=== PATIENT | male | born 1995 | race Asian ===

== ENCOUNTER → 2016-10-13 | Outpatient (CLI) | payer OTHER ==
[2016-10-13 12:53] LABS: HEPATITIS B AB NEG
[2016-10-21 15:44] LABS: LSP % CELLS ANALYZED CD4 19 % (30-61); LSP ABSOLUTE CT CD4 291 cells/uL (490-1740); LSP LYMPHOCYTES ABSOLUTE 1495 cells/uL (850-3900)
== END ==
LOC: C.LAB1850 09:48
PROVIDERS: ATTEND Internal Medicine Infectious Disease
DX: B20 Human immunodeficiency virus [HIV] disease (principal)

== ENCOUNTER → 2016-12-13 | Outpatient (CLI) | payer OTHER ==
[2016-12-13 12:17] LABS: BASO % 0.6 %; BASO ABS # 0.04 K/uL (0-0.2); COMPLETE YES; EOS % 9.3 %; IG% 0.1 %; LYMPH % 35.2 %; LYMPH ABS # 2.39 K/uL (1.2-3.4); MEAN CELL VOLUME 86.1 fL (80-100); MEAN CORPUSCULAR HEMOGLOBIN 29.4 pg (25-34); MEAN CORPUSCULAR HGB CONC 34.1 g/dl (32-36); MEAN PLATELET VOLUME 9.4 fL (7.4-10.4); MONO % 8.7 %; NEUT % 46.1 %; PLATELET COUNT 350 K/uL (130-400); RED BLOOD COUNT 4.76 M/uL (4.7-6.1); WHITE BLOOD COUNT 6.79 K/uL (4.8-10.8)
[2016-12-13 12:23] LABS: ALT/SGPT 111 U/L (12-78); AST/SGOT 407 U/L (15-37); BLOOD UREA NITROGEN 16 mg/dl (7-18); BUN/CREATININE RATIO 14.6 (10-20); CALCIUM 9.7 mg/dl (8.5-10.1); CARBON DIOXIDE 31 mmol/L (21-32); CHLORIDE 105 mmol/L (98-107); CHOLESTEROL 147 mg/dl (0-200); CREATININE 1.08 mg/dl (0.60-1.40); GLUCOSE 102 mg/dl (70-99); POTASSIUM 4.1 mmol/L (3.5-5.1); SODIUM 140 mmol/L (136-145)
[2016-12-13 12:25] LABS: ALB/GLOB RATIO 1.1 (0.9-2); ALKALINE PHOSPHATASE 63 U/L (45-117); CHOLESTEROL/HDL RATIO 3.5; HDL CHOLESTEROL 42 mg/dl; LDL CHOLESTEROL CALCULATED 70 mg/dl; TRIGLYCERIDES 175 mg/dl (0-150); VERY LOW DENSITY LIPOPROT CALC 35 mg/dl
[2016-12-15 13:28] LABS: LSP % CELLS ANALYZED CD4 20 % (30-61); LSP ABSOLUTE CT CD4 474 cells/uL (490-1740); LSP LYMPHOCYTES ABSOLUTE 2360 cells/uL (850-3900)
== END | disposition home or self-care (01) ==
LOC: C.LAB1850 10:21
PROVIDERS: ATTEND Internal Medicine Infectious Disease
DX: B20 Human immunodeficiency virus [HIV] disease (principal)

== ENCOUNTER → 2017-03-21 | Outpatient (CLI) | payer OTHER ==
[2017-03-21 12:27] LABS: BASO % 0.5 %; BASO ABS # 0.03 K/uL (0-0.2); EOS % 4.9 %; EOS ABS # 0.31 K/uL (0-0.5); HEMOGLOBIN 14.4 g/dL (14.0-18.0); IG# 0.02 K/uL (0.00-0.02); LYMPH % 35.3 %; LYMPH ABS # 2.25 K/uL (1.2-3.4); MEAN CELL VOLUME 88.2 fL (80-100); MEAN CORPUSCULAR HEMOGLOBIN 30.3 pg (25-34); MEAN CORPUSCULAR HGB CONC 34.3 g/dl (32-36); MEAN PLATELET VOLUME 9.2 fL (7.4-10.4); MONO % 8.2 %; MONO ABS # 0.52 K/uL (0.11-0.59); NEUT % 50.8 %; NEUT ABS # 3.25 K/uL (1.4-6.5); PLATELET COUNT 404 K/uL (130-400); RED CELL DISTRIBUTION WIDTH CV 12.7 % (11.5-14.5); WHITE BLOOD COUNT 6.38 K/uL (4.8-10.8)
[2017-03-21 12:34] LABS: ALT/SGPT 37 U/L (12-78); BLOOD UREA NITROGEN 17 mg/dl (7-18); CALCIUM 8.8 mg/dl (8.5-10.1); CARBON DIOXIDE 27 mmol/L (21-32); CHOLESTEROL 154 mg/dl (0-200); CREATININE 1.18 mg/dl (0.60-1.40); GLUCOSE 112 mg/dl (70-99); POTASSIUM 3.7 mmol/L (3.5-5.1); SODIUM 140 mmol/L (136-145)
[2017-03-21 12:37] LABS: ALKALINE PHOSPHATASE 65 U/L (45-117); AST/SGOT 22 U/L (15-37); LDL CHOLESTEROL CALCULATED 87 mg/dl; TOTAL PROTEIN 7.9 gm/dl (6.4-8.2)
== END | disposition home or self-care (01) ==
LOC: C.LAB1850 10:04
PROVIDERS: ATTEND Internal Medicine Infectious Disease
DX: B20 Human immunodeficiency virus [HIV] disease (principal)

== ENCOUNTER 2018-11-08 15:46 | Inpatient (IN) ==
[2018-11-08 16:19] LABS: Appearance Urine Clear (Clear); Bilirubin Urine Negative (Negative); Blood Urine Negative (Negative); Color Urine Orange; Glucose Urine UA Negative (Negative); Ketones Urine Negative (Negative); Leukocyte Esterase Urine Negative (Negative); Nitrite Urine Negative (Negative); Protein Urine Negative (Negative); Specific Gravity Urine 1.016 (1.000-1.030); Urobilinogen Urine Negative (Negative); pH Urine 8.5 (4.5-7.5)
[2018-11-08 16:36] LABS: Amphetamines+Metham, Urine Neg (Neg); Barbiturates, Urine Neg (Neg); Benzodiazepine, Urine Neg (Neg); Cocaine, Urine Neg (Neg); MDMA (Ecstacy), Urine Neg (Neg); Methadone, Urine Neg (Neg); Opiate, Urine Neg (Neg); Phencyclidine, Urine Neg (Neg)
[2018-11-08 17:04] LABS: Basophils # (auto) 0.04 K/uL (0-0.2); Basophils % (auto) 0.6 %; Eosinophils # (auto) 0.19 K/uL (0-0.5); Eosinophils % (auto) 2.7 %; Hematocrit (blood only) 41.1 % (42-52); Hemoglobin 14.3 g/dL (14.0-18.0); Immature Granulocytes # (auto) 0.01 K/uL (0.00-0.02); Immature Granulocytes % (auto) 0.1 %; Lymphocytes # (auto) 1.37 K/uL (1.2-3.4); Lymphocytes % (auto) 19.4 %; Mean Corpuscular Hemoglobin 30.1 pg (25-34); Mean Corpuscular Hgb Conc 34.8 g/dL (32-36); Mean Corpuscular Volume 86.5 fL (80-100); Mean Platelet Volume 9.4 fL (7.4-10.4); Monocytes # (auto) 0.35 K/uL (0.11-0.59); Neutrophils # (auto) 5.11 K/uL (1.4-6.5); Neutrophils % (auto) 72.2 %; Platelet Count 331 K/uL (130-400); RDW Coefficient of Variation 12.8 % (11.5-14.5); RDW Standard Deviation 40.9 fL (36.4-46.3); Red Blood Count 4.75 M/uL (4.7-6.1); White Blood Count 7.07 K/uL (4.8-10.8)
[2018-11-08 17:20] LABS: Albumin Level 4.2 gm/dl (3.4-5.0); Calcium 9.1 mg/dl (8.5-10.1); Est GFR (African American) 138.1; Est GFR (Non-African American) 119.1; Potassium 3.7 mmol/L (3.5-5.1)
[2018-11-08 17:30] LABS: Albumin Globulin Ratio 1.1 (0.9-2); Bilirubin,Total 0.7 mg/dl (0.2-1); Globulin 3.7 gm/dl (2.5-4.0); Thyroid Stimulating Hormone 0.997 uIu/ml (0.300-4.500); Total Protein 7.9 gm/dl (6.4-8.2)
[2018-11-08 17:40] LABS: Acetaminophen < 2 ug/ml (10-30); Salicylate < 1.7 mg/dl (2.8-20)
--- NOTE | 2018-11-08 18:02 | Emergency Department Note ---
Entered by Alicia Cotter acting as a scribe for Shadi Root MD History of Present Illness General Chief complaint: Mental Health Evaluation Stated complaint: MENTAL HEALTH EVALUATION Time Seen by Provider: 11/08/18 15:56 Source: patient History of Present Illness Onset (ago): year(s) 1 Location: head Pain Consistency: + other (worsening) Quality: + other (mental health evaluation) Relieved By: not by medication Associated symptoms: + denies other symptoms (abdominal pain, leg swelling, abnormal sleeping), + loss of appetite and + other (SI with plan to hang himself) The patient is a 22 year old [place] male w/ PMHx depression and HIV who presents to the ED for a mental health evaluation. The patient states that over the past year he has had increased depression. He states that last semester he did not meet his expectations or his professors expectations in school and did not do well last semester. He reports that he went home to [facility] for the summer and was placed on medications for his depression there. He states that he only took them for a few days and then stopped taking them. He reports that he thought he would have a clean slate for the semester, but he again missed a deadline for a project and it has made his depression worse. The patient sates that she has been having thoughts of harming himself by hanging himself with a rope. The patient complains of loss of appetite. He notes that he had been sleeping too much when he came back to school, but isnt anymore. He notes that he does have access to kitchen knives. The patient denies abdominal pain, leg swelling, ever trying to hurt himself in the past, and access to guns Home Medications Home Medications Medication Instructions Recorded Confirmed Type Tivicay 0 mg PO DAILY 11/08/18 11/08/18 History emtricitabine-tenofovir alafen 1 tab PO DAILY 11/08/18 11/08/18 History [Descovy] Allergies Allergy/AdvReac Type Severity Reaction Status Date / Time No Known Allergies Allergy Verified 11/08/18 17:56 Past Med/Surg History Medical History Depression HIV (human immunodeficiency virus infection) Family History Other No significant family history Social History Preferred Language: Hebrew Communication Ability: Effective 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 and A total of 10 systems reviewed and were otherwise negative Physical Exam Vital Signs Vital Signs - 24 hr 11/08/18 15:52 11/08/18 17:52 11/08/18 19:01 Temperature 37.0 C Temperature Source Oral Sepsis Recent Fever Within 48 Hours No Sepsis New/Unexplained Change in Mental Status No Sepsis Action Taken by Nursing No Action Required Pulse Rate 73 Pulse Rate [Finger] 75 73 Pulse Rhythm Regular Pulse Rhythm [Finger] Regular Pulse Strength Normal Respiratory Rate 20 16 20 Respiratory Effort / Characteristics Non-Labored Non-Labored Spontaneous Respiratory Depth Normal Normal Respiratory Pattern Regular Regular Blood Pressure 128/76 Blood Pressure [Right Arm] 141/75 H 133/76 Blood Pressure Mean 93 Blood Pressure Mean [Right Arm] 97 95 Blood Pressure Position Sitting Pulse Oximetry 97 100 98 Oxygen Delivery Method Room Air Room Air GENERAL: Well appearing, well nourished, NAD, non-toxic. Wearing glasses. EYE EXAM: Normal conjunctiva. PERRL, no anisocoria and EOM's grossly intact w/o pain. OROPHARYNX: Moist mucous membranes. Grossly normal dentition. NECK: Supple, no nuchal rigidity, no adenopathy, non-tender. No signs of meningismus. LUNGS: Clear to auscultation. Normal chest wall mechanics. HEART: NSR, no MRG. ABDOMEN: Abdomen soft, non-tender, normo-active bowel sounds, no masses, no rebound or guarding. BACK: No CVA TTP. SKIN: No rashes and no bruising. UPPER EXTREMITIES: Upper extremities are grossly normal. LOWER EXTREMITIES: No pitting edema. No calf pain. NEURO EXAM: A&O x3, cranial nerves II-XII grossly intact, normal speech, moves all 4 extremities on command w/o issue. PSYCH: Flat affect. Depressed mood. Positive SI with plan. No HI or AVH. Course 1616: Past medical records reviewed. The patient was evaluated in room A7. A complete history and physical exam was performed. 1744: The patient was medically cleared at this time. I reevaluated him and updated him on the process of placement. 1944: The patient was accepted to [address] [place] [address] and I signed the 201 at this time. Medical Decision Making Differential Diagnosis Differential diagnoses considered include mood disorder, infection, hypoglycemia, electrolyte abnormalities, cardiac sources, intracerebral event, toxicologic, neurologic, as well as others. Medical Records Attestation: I reviewed the patient's medical records. Home Medications Current Medication List: was personally reviewed by me Laboratory Data Attestation: I reviewed the patient's lab results. Result diagrams: 11/08/18 16:51 11/08/18 16:51 Lab Results 11/08/18 11/08/18 11/08/18 Range/Units 16:00 16:00 16:51 WBC 7.07 (4.8-10.8) K/uL RBC 4.75 (4.7-6.1) M/uL Hgb 14.3 (14.0-18.0) g/dL Hct 41.1 L (42-52) % MCV 86.5 (80-100) fL MCH 30.1 (25-34) pg MCHC 34.8 (32-36) g/dL RDW Std Deviation 40.9 (36.4-46.3) fL RDW Coeff of Ruth 12.8 (11.5-14.5) % Plt Count 331 (130-400) K/uL MPV 9.4 (7.4-10.4) fL Immature Gran % (Auto) 0.1 % Neut % (Auto) 72.2 % Lymph % (Auto) 19.4 % [place] % (Auto) 5.0 % Eos % (Auto) 2.7 % Baso % (Auto) 0.6 % Immature Gran # (Auto) 0.01 (0.00-0.02) K/uL Neut # (Auto) 5.11 (1.4-6.5) K/uL Lymph # (Auto) 1.37 (1.2-3.4) K/uL [place] # (Auto) 0.35 (0.11-0.59) K/uL Eos # (Auto) 0.19 (0-0.5) K/uL Baso # (Auto) 0.04 (0-0.2) K/uL Sodium (136-145) mmol/L Potassium (3.5-5.1) mmol/L Chloride (98-107) mmol/L Carbon Dioxide (21-32) mmol/L Anion Gap (3-11) BUN (7-18) mg/dl Creatinine (0.6-1.4) mg/dl Est Cr Clr Drug Dosing ml/min Est GFR ( Amer) Est GFR (Non-Af Amer) BUN/Creatinine Ratio (10-20) Glucose (70-99) mg/dl Calcium (8.5-10.1) mg/dl Total Bilirubin (0.2-1) mg/dl AST (15-37) U/L ALT (12-78) U/L Alkaline Phosphatase (45-117) U/L Total Protein (6.4-8.2) gm/dl Albumin (3.4-5.0) gm/dl Globulin (2.5-4.0) gm/dl Albumin/Globulin Ratio (0.9-2) TSH (0.300-4.500) uIu/ml Urine Color [place] Urine Appearance Clear (Clear) Urine pH 8.5 H (4.5-7.5) Ur Specific [place] 1.016 (1.000-1.030) Urine Protein Negative (Negative) Urine Glucose (UA) Negative (Negative) Urine Ketones Negative (Negative) Urine Blood Negative (Negative) Urine Nitrite Negative (Negative) Urine Bilirubin Negative (Negative) Urine Urobilinogen Negative (Negative) Ur Leukocyte Esterase Negative (Negative) Salicylates (2.8-20) mg/dl Urine Opiates Screen Neg (Neg) Ur Methadone, Qual Neg (Neg) Acetaminophen (10-30) ug/ml Urine Barbiturates Neg (Neg) Ur Phencyclidine (PCP) Neg (Neg) U Amphetamin/Meth Scrn Neg (Neg) MDMA (Ecstasy) Screen Neg (Neg) U Benzodiazepines Scrn Neg (Neg) Ur Cocaine Metabolite Neg (Neg) U Marijuana (THC) Screen Neg (Neg) Ethyl Alcohol mg/dL (0-3) mg/dl 11/08/18 11/08/18 11/08/18 Range/Units 16:51 16:51 16:51 WBC (4.8-10.8) K/uL RBC (4.7-6.1) M/uL Hgb (14.0-18.0) g/dL Hct (42-52) % MCV (80-100) fL MCH (25-34) pg MCHC (32-36) g/dL RDW Std Deviation (36.4-46.3) fL RDW Coeff of Ruth (11.5-14.5) % Plt Count (130-400) K/uL MPV (7.4-10.4) fL Immature Gran % (Auto) % Neut % (Auto) % Lymph % (Auto) % [place] % (Auto) % Eos % (Auto) % Baso % (Auto) % Immature Gran # (Auto) (0.00-0.02) K/uL Neut # (Auto) (1.4-6.5) K/uL Lymph # (Auto) (1.2-3.4) K/uL [place] # (Auto) (0.11-0.59) K/uL Eos # (Auto) (0-0.5) K/uL Baso # (Auto) (0-0.2) K/uL Sodium 140 (136-145) mmol/L Potassium 3.7 (3.5-5.1) mmol/L Chloride 106 (98-107) mmol/L Carbon Dioxide 26 (21-32) mmol/L Anion Gap 7.0 (3-11) BUN 10 (7-18) mg/dl Creatinine 0.90 (0.6-1.4) mg/dl Est Cr Clr Drug Dosing 106.0 ml/min Est GFR ( Amer) 138.1 Est GFR (Non-Af Amer) 119.1 BUN/Creatinine Ratio 11.0 (10-20) Glucose 92 (70-99) mg/dl Calcium 9.1 (8.5-10.1) mg/dl Total Bilirubin 0.7 (0.2-1) mg/dl AST 14 L (15-37) U/L ALT 28 (12-78) U/L Alkaline Phosphatase 65 (45-117) U/L Total Protein 7.9 (6.4-8.2) gm/dl Albumin 4.2 (3.4-5.0) gm/dl Globulin 3.7 (2.5-4.0) gm/dl Albumin/Globulin Ratio 1.1 (0.9-2) TSH 0.997 (0.300-4.500) uIu/ml Urine Color Urine Appearance (Clear) Urine pH (4.5-7.5) Ur Specific [place] (1.000-1.030) Urine Protein (Negative) Urine Glucose (UA) (Negative) Urine Ketones (Negative) Urine Blood (Negative) Urine Nitrite (Negative) Urine Bilirubin (Negative) Urine Urobilinogen (Negative) Ur Leukocyte Esterase (Negative) Salicylates < 1.7 L (2.8-20) mg/dl Urine Opiates Screen (Neg) Ur Methadone, Qual (Neg) Acetaminophen < 2 L (10-30) ug/ml Urine Barbiturates (Neg) Ur Phencyclidine (PCP) (Neg) U Amphetamin/Meth Scrn (Neg) MDMA (Ecstasy) Screen (Neg) U Benzodiazepines Scrn (Neg) Ur Cocaine Metabolite (Neg) U Marijuana (THC) Screen (Neg) Ethyl Alcohol mg/dL < 3.0 (0-3) mg/dl Blood Pressure Blood Pressure Findings: Elevated blood pressure Blood Pressure Disposition: elevated BP felt to be situational MDM Narrative The patient is a 22 year old [place] male w/ PMHx depression and HIV who presents to the ED for a mental health evaluation. Patient was seen and evaluated the bedside. The patient does present with active SI with plan. No prior history of attempts. 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 The patient has had okay sleep decreased appetite depressed mood and the patient has not been doing as well in school which is also contributed. The patient did a blood work completed and was deemed medically clear. After further discussion with the patient the patient is agreeable to voluntary inpatient treatment. Patient was subsequently admitted to [facility]. Impression & Plan Suicidal ideation, Depression Discharge Plan Visit Data *Final* Discharge Date/Time: 11/08/18 19:43 Chief Complaint: Mental Health Evaluation Stated Complaint: MENTAL HEALTH EVALUATION ED Provider: Shadi Root Discharge Problem: Suicidal ideation, Depression Patient Disposition: Admitted As Inpatient Discharge Instructions Interventions: ED Discharge Assessment Last Done: 11/08/18 19:43 Discharge Problem: Depression Qualifiers: Depression Type: unspecified Qualified Code(s): F32.9 - Major depressive disorder, single episode, unspecified The scribe's documentation has been prepared under my direction and personally reviewed by me in its entirety. I confirm that the note above accurately reflects all work, treatment, procedures, and medical decision making performed by me.
[2018-11-08 19:02] VITALS: O2SAT 98
[2018-11-08] MEDS ORDERED: ACETAMINOPHEN 325 MG TAB PO PRN (19:10)
[2018-11-08] MEDS ORDERED: ALUMINUM/MAGNESIUM SUSP 30 ML UDC PO PRN (19:10)
[2018-11-08] MEDS ORDERED: BISMUTH SUBSALICYLATE PER ML OMNICELL CHARGE PO PRN (19:10)
[2018-11-08] MEDS ORDERED: MAGNESIUM HYDROXIDE SUSP 30 ML UDC PO PRN (19:10)
[2018-11-08] MEDS ORDERED: SODIUM CHLORIDE 0.65% NA SOLN 45 ML (OCEAN) PRN (19:10)
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
[2018-11-09] MEDS: FLUOXETINE HCL 20 MG CAP PO SCH (13:10)
[2018-11-10] MEDS: FLUOXETINE HCL 20 MG CAP PO SCH (09:33)
--- NOTE | 2018-11-10 16:54 | Psychiatric Progress Note ---
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 Pt states that he had been treated with antidepressant medication in [facility] this past summer, and believes he had taken fluoxetine without side effects. The patient was had 2 dosages of fluoxetine 20 mg daily and has soham erated it well. We reviewed common side effects associated with SSRIs and the patient says that he is not currently experiencing any of these side effects and is not aware of any adverse effect thus far. He endorses standard symptoms of major depression or the past year. He notes that the symptoms have waxed and waned, but in the past month or so have been worse. Major concern for the patient is his academic standing. He acknowledges that for approximately the past 6 months he has periodically neglected his studies, not completed assignments, has skipped meetings, and has not been consistently participating in his research studies. For the patient, his concern is not just academic failure but the perceived risk of having to return to [place] (either [facility] or [facility]) where he feels certain that he will be rejected should his family discover that he is being treated for HIV, and should have a confirmed what he believes is already there is suspicion that he is luis. Accordingly, he worries that he will end up in circumstances that will not be "safe" for him in terms of having a reliable source of income, as well as a reliable source of community. He tells me that he does have one close friend locally, but otherwise appears to be isolated socially. He describes his father as being somewhat intolerant and generally noncommunicative, but, at the same time, being fairly controlling. He notes that his mother appears to be passive, but more intellectually oriented. Today, I have ordered his dose of fluoxetine increased to 30 mg a day. We will continue to work with the patient to explore options for him at school, including options for accommodations given his depression, apathy, and difficulty concentrating. (1) Suicidal ideation: 11/09 - Admits to intermitted suicidality over the past year, with thoughts becoming stronger in the last month. Admits to consideration to hang himself with rope in his bathroom - Admitted to a locked inpatient behavioral health unit, on q15 minute safety checks - Encourage medication initiation/adjustments as indicated - Encourage participation in group and recreational therapies - Gather collateral information from outpatient providers - Suggest family meeting to involve outpatient supports in safety planning - Arrange appropriate aftercare 11/10 -The patient reports that while he has had fleeting thoughts of suicide over the past year he has never had actual suicidal intent. He does acknowledge that he had thought of possibly hanging himself, and notes that he has object in his house that he might use for purposes of hanging, but notes that he has not purchased these items specifically with the idea of hanging himself and says that he does not believe that he is genuinely suicidal. He has no history of intentional self-injurious behaviors and has never had any active suicidal plan or intent. -However, the patient's depression, compounded by his complex social situation, does place him at significant risk for suicide and our plan is to address some of the patient's psychosocial and academic concerns through working with his [facility] knowledge management advisor and the patient. (2) Depression: 11/09 - Will treat as major depressive disorder, recurrent - pt believes he was previously prescribed fluoxetine for his depressive symptoms. He denies side effects and reports mildly noticeable response during the 1.5 month treatment duration - Pt agreeable to resuming fluoxetine after discussion of risks, benefits, and potential side effects. Ordered 20mg to be given qAM, with starting dose this afternoon. Can titrate medication as tolerated/indicated - Coordinate care with [employer] regarding his Ph.D work - Establish care with outpatient providers, pt had already scheduled an initial evaluation with an outpatient therapist - Encourage involvement of outpatient support in family meeting - likely patient's leather case finisher, Cholo - Encourage participation in group and recreational programming - Encourage development of healthy and effective coping strategies 11/10 -Patient reports that he continues to feel depressed. -He has thus far tolerated fluoxetine 20 mg daily and noted that at some point during the summer he had a short trial of fluoxetine with possible favorable event had no noted side effects. -The plan is to increase his dose of fluoxetine, beginning tomorrow and we will continue to titrate as indicated. -The patient will need to be connected with an outpatient psychiatrist and a therapist. (3) HIV (human immunodeficiency virus infection): 11/09 - Pt's outpatient Infectious Disease provider office contacted on admission - Confirmed current treatment regimen - Recommended restarting regimen at home doses, as patient admits he has not been taking the medication regularly - Pt has follow-up appointment scheduled with Dr. Gallego - Continue work with leather case finisher and newly scheduled therapist as part of outpatient treatment plan 11/10 -We are concerned that the patient, an intelligent man, stopped taking his HIV medications approximately a month ago. He tells us that he did does not as any part of a plan to cause himself to become sick and but, instead, is a function of his general apathy and lack of motivation. -The patient has been educated concerning the importance of not interrupting HIV treatment, and the associated risks of stopping HIV medications. Inventory Assets Strengths: willingness for treatment, involvement of leather case finisher, had already scheduled initial therapy appointment Needs: consideration of medication retrial, development of healthy and effective coping strategies Risk Factors Assessment Male: Yes : No Do You Have Access To A Gun?: No Health Problems: Yes (diagnosed with HIV 2 years ago) Mental Health Diagnoses: Yes (previously treated for depression) Substance Use Disorders: No Previous Attempt: No Family History of Suicide: No Previous Psychiatric Hospitalization: No Hopelessness: Yes Smoker: No Protective Factors Assessment Denominational Beliefs: No : No Responsible for Young Children: No Employed: No Stable Relationships: No Supportive Family: Yes (but communication is limited due to distance geographically) Interval History Chief Complaint "Depression". Review of Systems Sleep Information Total Hours of Sleep: 6.75 Meal Information Percent Meal Consumed - Breakfast: 100 Percent Meal Consumed - Lunch: 75 Percent Meal Consumed - Dinner: 90 Nutrition Comment: documented from the patient meal record Subjective Subjective Patient was seen & assessed and interval progress reviewed with treatment team. I met with the patient individually in order to assess his current mental status, evaluate his response to treatment, make any necessary in the patient's treatment regimen in coordination with the patient, and address issues and concerns that may arise. Today, the patient tells me that he has been experiencing symptoms of depression for approximately 1 year, and his notes that he does not believe that he had depression prior to that. He identifies no precipitating event and asks me if it is possible to simply develop depression w ithout any external factor causing it. (I assured him that that is entirely possible.) His symptoms of depression include depressed mood, hypersomnia, fatigue, psychosocial withdrawal, poor concentration, apathy, and anhedonia. 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. Within the context of his depression, he tells me that for at least the past 6 months he has not been fully engaged in his studies, sometimes does not complete tasks, and has periodically missed scheduled meetings and, at the same time, has neglected his research studies. The patient reports that his depression has worsened in the past month or so and during this period of time he has stopped taking his antiviral medications (the patient is HIV positive and reports his most recent studies showed a nondetectable viral load) disease. The patient explained the fact that he has stopped taking his HIV medications but I explained that he has simply been apathetic and, also, notes that he has been feeling physically fairly healthy and simply lacks the motivation to adhere with treatment. Also complicating the clinical picture is the evident fact that the patient lacks sufficient social supports. He is luis, but has never told his parents. He describes him as being "old-fashioned" and "from a different generation," and he has heard them make multiple negative comments about the recent decision in the [facility] ([facility]) to allow same sex marriage. Although the patient was born and raised the first 5 years of his life and [facility], the family moved to [facility] in the [facility] and his parents have a business that is based and [facility]. The patient notes that tolerance of homosexuality in the [facility] is significantly less than in [facility], and he worries that he will not be accepted by his parents should he need to return to the [facility], particularly now that he is HIV positive. This set of circumstances substantially complicate the patient's situation and heightened his concern about his academic performance. Today, he tells me that he has spoken with his advisor about his situation. They have discussed options for possibly reducing his workload and making necessary accommodations. He notes that he did disclosed to his advisor that he has been psychiatrically hospitalized. We reviewed various options for treatment of depression. He notes that in the past he had taken fluoxetine at an unspecified dose for an unspecified period of time and thought that it may have helped "a little." We reviewed anticipated benefits as well as the various side effects associated with fluoxetine (and other SSRIs) and the patient tells me that so far he has not experienced any of these symptoms and is not aware of any other side effects. I advised him that I am going to recommend increasing his fluoxetine from 20 mg a day to a dose of 30 mg a day, starting tomorrow. A concern that the team has is that the patient will leave the hospital only to find that he is placed on academic probation or will not be allowed to continue in his PhD program and will find himself in a situation in which she is to live in the [place] and will have to return to his case, the [facility] (although he does have relatives including grandparents in [facility]). 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 We have been in contact with his advisor (with the patient's permission) to discuss options, and these will be explored further with the patient over the next several days. Physical Exam Psychiatric Orientation: alert and oriented x 3 Apperance: appropriately dressed and appropriately groomed Eye Contact: + fair eye contact Motor Behavior: steady gait and station Speech: normal rate/rhythm/volume of speech Affect: + depressed affect and + anxious affect Mood: + depressed mood Thought Process: linear/logical thought process Thought Content: reality based without delusions Suicidal Thoughts: denies suicidal thoughts The patient reports that he does not have suicidal plan or intent. He notes that prior to admission he had had fleeting thoughts of killing himself by hanging, but says that these thoughts were not associated with any active act. They he states, "I am really not suicidal." Homicidal Thoughts: denies homicidal thoughts Hallucinations: no auditory hallucinations Cognition: recent memory grossly intact, remote memory grossly intact and attention grossly intact Estimated Intelligence: + above average estimated intelligence Insight: + fair insight Judgement: + fair judgement The patient's judgment is clouded by his depression. Vital Signs (Past 24 Hours) Last Vital Signs Temp 36.7 C 11/10/18 06:43 Pulse 80 11/10/18 06:43 Resp 18 11/10/18 06:43 BP 114/74 11/10/18 06:43 Pulse Ox 98 11/08/18 19:01 Results & Data Current Inpatient Medications Current Inpatient Medications: Current Inpatient Medications Acetaminophen (Tylenol) 650 mg PO Q4H PRN PRN Reason: Headache or Minor Fever Stop: 12/08/18 19:09 Al Hydrox/Mg Hydrox/Simethicone (Maalox) 30 ml PO Q4H PRN PRN Reason: GI Upset Stop: 12/08/18 19:09 Bismuth Subsalicylate (Kaopectate) 15 ml PO PRN PRN PRN Reason: Loose Stool Stop: 12/08/18 19:09 Hydroxyzine HCl (Vistaril) 50 mg PO HSZ PRN PRN Reason: Insomnia Stop: 12/08/18 19:09 Hydroxyzine HCl (Vistaril) 25 mg PO Q4H PRN PRN Reason: Anxiety Stop: 12/08/18 19:09 Last Admin: 11/09/18 17:13 Dose: 25 mg Documented by: Magnesium Hydroxide (Milk Of Magnesia) 30 ml PO DAILY PRN PRN Reason: Constipation Stop: 12/08/18 19:09 Sodium Chloride ([place] Nasal) 1 - 2 sprays NA PRN PRN PRN Reason: Nasal Dryness/Congestion Stop: 12/08/18 19:09 Mental Health & Subst Abuse Tx Therapist Name of Therapist: Andrew Lino Manufacturing Engineer Machining Name of Manufacturing Engineer Machining: Andrez Carrillo Post Discharge Appointments Primary Care Physician Name Of Family Doctor: Dr. Gallego Date of Appointment with PCP: 12/05/18 Specialist Name of Specialist: Dr. Gallego-Information Coordinator Phone Number for Specialist: [phone] Date of Appointment with Specialist: 12/05/18 Time of Appointment with Specialist: 1:00PM Specialty Appointment Comment: [place] [id number] CPT Code CPT Code 29542 (1) Depression Depression Type: unspecified Qualified Code(s): F32.9 - Major depressive disorder, single episode, unspecified (2) HIV (human immunodeficiency virus infection) HIV symptom status: asymptomatic Qualified Code(s): Z21 - Asymptomatic human immunodeficiency virus [HIV] infection status
[2018-11-11] MEDS ORDERED: FLUOXETINE HCL 10 MG CAP PO SCH (09:00)
--- NOTE | 2018-11-11 15:22 | Psychiatric Progress Note ---
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 Pt states that he had been treated with antidepressant medication in [facility] this past summer, and believes he had taken fluoxetine without side effects. The patient was had 2 dosages of fluoxetine 20 mg daily and has soham erated it well. We reviewed common side effects associated with SSRIs and the patient says that he is not currently experiencing any of these side effects and is not aware of any adverse effect thus far. He endorses standard symptoms of major depression or the past year. He notes that the symptoms have waxed and waned, but in the past month or so have been worse. Major concern for the patient is his academic standing. He acknowledges that for approximately the past 6 months he has periodically neglected his studies, not completed assignments, has skipped meetings, and has not been consistently participating in his research studies. For the patient, his concern is not just academic failure but the perceived risk of having to return to [place] (either [facility] or [facility]) where he feels certain that he will be rejected should his family discover that he is being treated for HIV, and should have a confirmed what he believes is already there is suspicion that he is luis. Accordingly, he worries that he will end up in circumstances that will not be "safe" for him in terms of having a reliable source of income, as well as a reliable source of community. He tells me that he does have one close friend locally, but otherwise appears to be isolated socially. He describes his father as being somewhat intolerant and generally noncommunicative, but, at the same time, being fairly controlling. He notes that his mother appears to be passive, but more intellectually oriented. Today, I have ordered his dose of fluoxetine increased to 30 mg a day. We will continue to work with the patient to explore options for him at school, including options for accommodations given his depression, apathy, and difficulty concentrating. (1) Suicidal ideation: 11/09 - Admits to intermitted suicidality over the past year, with thoughts becoming stronger in the last month. Admits to consideration to hang himself with rope in his bathroom - Admitted to a locked inpatient behavioral health unit, on q15 minute safety checks - Encourage medication initiation/adjustments as indicated - Encourage participation in group and recreational therapies - Gather collateral information from outpatient providers - Suggest family meeting to involve outpatient supports in safety planning - Arrange appropriate aftercare 11/10 -The patient reports that while he has had fleeting thoughts of suicide over the past year he has never had actual suicidal intent. He does acknowledge that he had thought of possibly hanging himself, and notes that he has object in his house that he might use for purposes of hanging, but notes that he has not purchased these items specifically with the idea of hanging himself and says that he does not believe that he is genuinely suicidal. He has no history of intentional self-injurious behaviors and has never had any active suicidal plan or intent. -However, the patient's depression, compounded by his complex social situation, does place him at significant risk for suicide and our plan is to address some of the patient's psychosocial and academic concerns through working with his [facility] academic advisement director and the patient. (2) Depression: 11/09 - Will treat as major depressive disorder, recurrent - pt believes he was previously prescribed fluoxetine for his depressive symptoms. He denies side effects and reports mildly noticeable response during the 1.5 month treatment duration - Pt agreeable to resuming fluoxetine after discussion of risks, benefits, and potential side effects. Ordered 20mg to be given qAM, with starting dose this afternoon. Can titrate medication as tolerated/indicated - Coordinate care with [employer] regarding his Ph.D work - Establish care with outpatient providers, pt had already scheduled an initial evaluation with an outpatient therapist - Encourage involvement of outpatient support in family meeting - likely patient's casework specialist, Cholo - Encourage participation in group and recreational programming - Encourage development of healthy and effective coping strategies 11/10 -Patient reports that he continues to feel depressed. -He has thus far tolerated fluoxetine 20 mg daily and noted that at some point during the summer he had a short trial of fluoxetine with possible favorable event had no noted side effects. -The plan is to increase his dose of fluoxetine, beginning tomorrow and we will continue to titrate as indicated. -The patient will need to be connected with an outpatient psychiatrist and a therapist. 11/11 raised prozac to 40mg a day as of 11/12, addressing school and stipend status, and family stressors addressing lack of social supprot and pt wearienss to share and engage with such possible supports (3) HIV (human immunodeficiency virus infection): 11/09 - Pt's outpatient Infectious Disease provider office contacted on admission - Confirmed current treatment regimen - Recommended restarting regimen at home doses, as patient admits he has not been taking the medication regularly - Pt has follow-up appointment scheduled with Dr. Gallego - Continue work with casework specialist and newly scheduled therapist as part of outpatient treatment plan 11/10 -We are concerned that the patient, an intelligent man, stopped taking his HIV medications approximately a month ago. He tells us that he did does not as any part of a plan to cause himself to become sick and but, instead, is a function of his general apathy and lack of motivation. -The patient has been educated concerning the importance of not interrupting HIV treatment, and the associated risks of stopping HIV medications. 11/11 attempting to resume HIV meds however not able to obtain pt own home supply. consulted ID given lack of recent anti-HIV meds and for assistance to obtain appropriate HIV Meds Inventory Assets Strengths: willingness for treatment, involvement of casework specialist, had already scheduled initial therapy appointment Needs: consideration of medication retrial, development of healthy and effective coping strategies Risk Factors Assessment Male: Yes : No Do You Have Access To A Gun?: No Health Problems: Yes (diagnosed with HIV 2 years ago) Mental Health Diagnoses: Yes (previously treated for depression) Substance Use Disorders: No Previous Attempt: No Family History of Suicide: No Previous Psychiatric Hospitalization: No Hopelessness: Yes Smoker: No Protective Factors Assessment Pentecostalism Beliefs: No : No Responsible for Young Children: No Employed: No Stable Relationships: No Supportive Family: Yes (but communication is limited due to distance geographically) Interval History Chief Complaint "feeling a bit better". Review of Systems Sleep Information Total Hours of Sleep: 7 Meal Information Percent Meal Consumed - Breakfast: 75 Percent Meal Consumed - Lunch: 30 Percent Meal Consumed - Dinner: 75 Nutrition Comment: documented from the patient meal record Subjective Subjective Patient was seen & assessed and interval progress reviewed with nursing and social work. pt denied SI today. Pt shared that phone call with mother did not go well as she talked about having father come here from [facility] and he is not wanting that. He feels having him here would be quite stressful. He is quite weary about his visa status and stipend status if he was to have some leave from his program and the unknowns of what could occur is stressful for him. He indicated that fluoxetine was started about 2 months ago and he had increased from 1 pill to 2 pills a while ago and that stopped the Prozac about 3 weeks ago. He stopped his HIV Meds about 3 weeks ago as well, although it seems the HIV Meds might have just had started 4 weeks ago as might not have been t taking them when in [facility] in the summer. Pt feels that he will be doing better if sorts out things about his program and if able to stay here and have ongoing stipend with having a notable reduced academic load for a bit of time. Pt not sure if the fluoxetine pills were 20mg pills but thinks he was actually taking 40mg a day before stopping the medication. He thinks he was improving some before worsening. He got sick and ad car issues and things were not going well as started this semester and things felt unmanageable leading to him shutting down more. Physical Exam Psychiatric Orientation: alert, oriented x 3 and cooperative Apperance: appropriately dressed, appropriately groomed and appeared stated age Eye Contact: good eye contact Motor Behavior: steady gait and station and no abnormal motor movements Speech: normal rate/rhythm/volume of speech Affect: + depressed affect, + anxious affect and mood congruent with affect "mood is not as anxious and not as depressed " Thought Process: goal directed thought process and thought association intact Thought Content: reality based without delusions and + hopelessness Suicidal Thoughts: denies suicidal thoughts and denies suicidal intent ("I don't think I would ever do it."); + reports suicidal plan (admits to consideration to hang himself in his bathroom, or crash car) Homicidal Thoughts: denies homicidal thoughts Hallucinations: no auditory hallucinations and no visual hallucinations Cognition: recent memory grossly intact, remote memory grossly intact, attention grossly intact and language grossly intact Estimated Intelligence: consistent with education level and + above average estimated intelligence Insight: + fair insight Judgement: + fair judgement Vital Signs (Past 24 Hours) Last Vital Signs Temp 36.6 C 11/11/18 06:33 Pulse 77 11/11/18 06:33 Resp 14 11/11/18 06:33 BP 101/65 11/11/18 06:33 Pulse Ox 98 11/08/18 19:01 Results & Data Current Inpatient Medications Current Inpatient Medications: Current Inpatient Medications Acetaminophen (Tylenol) 650 mg PO Q4H PRN PRN Reason: Headache or Minor Fever Stop: 12/08/18 19:09 Al Hydrox/Mg Hydrox/Simethicone (Maalox) 30 ml PO Q4H PRN PRN Reason: GI Upset Stop: 12/08/18 19:09 Bismuth Subsalicylate (Kaopectate) 15 ml PO PRN PRN PRN Reason: Loose Stool Stop: 12/08/18 19:09 Fluoxetine HCl (Prozac) 40 mg PO QAM PAIGE Stop: 12/12/18 08:59 Hydroxyzine HCl (Vistaril) 50 mg PO HSZ PRN PRN Reason: Insomnia Stop: 12/08/18 19:09 Hydroxyzine HCl (Vistaril) 25 mg PO Q4H PRN PRN Reason: Anxiety Stop: 12/08/18 19:09 Last Admin: 11/09/18 17:13 Dose: 25 mg Documented by: Magnesium Hydroxide (Milk Of Magnesia) 30 ml PO DAILY PRN PRN Reason: Constipation Stop: 12/08/18 19:09 Sodium Chloride ([place] Nasal) 1 - 2 sprays NA PRN PRN PRN Reason: Nasal Dryness/Congestion Stop: 12/08/18 19:09 Mental Health & Subst Abuse Tx Therapist Name of Therapist: Andrew Lino Management Professor Name of Management Professor: Andrez Carrillo Post Discharge Appointments Primary Care Physician Name Of Family Doctor: Dr. Gallego Date of Appointment with PCP: 12/05/18 Specialist Name of Specialist: Dr. Gallego-Consumer Lender Phone Number for Specialist: [phone] Date of Appointment with Specialist: 12/05/18 Time of Appointment with Specialist: 1:00PM Specialty Appointment Comment: [place] [address] CPT Code CPT Code 20630 (1) Depression Depression Type: unspecified Qualified Code(s): F32.9 - Major depressive disorder, single episode, unspecified (2) HIV (human immunodeficiency virus infection) HIV symptom status: asymptomatic Qualified Code(s): Z21 - Asymptomatic human immunodeficiency virus [HIV] infection status
[2018-11-12 06:52] VITALS: TEMP 98.1
[2018-11-12] MEDS: FLUOXETINE HCL 20 MG CAP PO SCH (07:35)
--- NOTE | 2018-11-12 12:26 | Psychiatric Progress Note ---
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 Pt states that he had been treated with antidepressant medication in [facility] this past summer, and believes he had taken fluoxetine without side effects. The patient was had 2 dosages of fluoxetine 20 mg daily and has soham erated it well. We reviewed common side effects associated with SSRIs and the patient says that he is not currently experiencing any of these side effects and is not aware of any adverse effect thus far. He endorses standard symptoms of major depression or the past year. He notes that the symptoms have waxed and waned, but in the past month or so have been worse. Major concern for the patient is his academic standing. He acknowledges that for approximately the past 6 months he has periodically neglected his studies, not completed assignments, has skipped meetings, and has not been consistently participating in his research studies. For the patient, his concern is not just academic failure but the perceived risk of having to return to [place] (either [facility] or [facility]) where he feels certain that he will be rejected should his family discover that he is being treated for HIV, and should have a confirmed what he believes is already there is suspicion that he is luis. Accordingly, he worries that he will end up in circumstances that will not be "safe" for him in terms of having a reliable source of income, as well as a reliable source of community. He tells me that he does have one close friend locally, but otherwise appears to be isolated socially. He describes his father as being somewhat intolerant and generally noncommunicative, but, at the same time, being fairly controlling. He notes that his mother appears to be passive, but more intellectually oriented. Today, I have ordered his dose of fluoxetine increased to 30 mg a day. We will continue to work with the patient to explore options for him at school, including options for accommodations given his depression, apathy, and difficulty concentrating. (1) Suicidal ideation: 11/09 - Admits to intermitted suicidality over the past year, with thoughts becoming stronger in the last month. Admits to consideration to hang himself with rope in his bathroom - Admitted to a locked inpatient behavioral health unit, on q15 minute safety checks - Encourage medication initiation/adjustments as indicated - Encourage participation in group and recreational therapies - Gather collateral information from outpatient providers - Suggest family meeting to involve outpatient supports in safety planning - Arrange appropriate aftercare 11/10 -The patient reports that while he has had fleeting thoughts of suicide over the past year he has never had actual suicidal intent. He does acknowledge that he had thought of possibly hanging himself, and notes that he has object in his house that he might use for purposes of hanging, but notes that he has not purchased these items specifically with the idea of hanging himself and says that he does not believe that he is genuinely suicidal. He has no history of intentional self-injurious behaviors and has never had any active suicidal plan or intent. -However, the patient's depression, compounded by his complex social situation, does place him at significant risk for suicide and our plan is to address some of the patient's psychosocial and academic concerns through working with his [facility] personal vehicle advisor and the patient. (2) Depression: 11/09 - Will treat as major depressive disorder, recurrent - pt believes he was previously prescribed fluoxetine for his depressive symptoms. He denies side effects and reports mildly noticeable response during the 1.5 month treatment duration - Pt agreeable to resuming fluoxetine after discussion of risks, benefits, and potential side effects. Ordered 20mg to be given qAM, with starting dose this afternoon. 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 -He has thus far tolerated fluoxetine 20 mg daily and noted that at some point during the summer he had a short trial of fluoxetine with possible favorable event had no noted side effects. -The plan is to increase his dose of fluoxetine, beginning tomorrow and we will continue to titrate as indicated. -The patient will need to be connected with an outpatient psychiatrist and a therapist. 11/11 raised prozac to 40mg a day as of 11/12, addressing school and stipend status, and family stressors addressing lack of social supprot and pt wearienss to share and engage with such possible supports (3) HIV (human immunodeficiency virus infection): 11/09 - Pt's outpatient Infectious Disease provider office contacted on admission - Confirmed current treatment regimen - Recommended restarting regimen at home doses, as patient admits he has not been taking the medication regularly - Pt has follow-up appointment scheduled with Dr. Gallego - Continue work with case management manager and newly scheduled therapist as part of outpatient treatment plan 11/10 -We are concerned that the patient, an intelligent man, stopped taking his HIV medications approximately a month ago. He tells us that he did does not as any part of a plan to cause himself to become sick and but, instead, is a function of his general apathy and lack of motivation. -The patient has been educated concerning the importance of not interrupting HIV treatment, and the associated risks of stopping HIV medications. 11/11 attempting to resume HIV meds however not able to obtain pt own home supply. consulted ID given lack of recent anti-HIV meds and for assistance to obtain appropriate HIV Meds Inventory Assets Strengths: willingness for treatment, involvement of case management manager, had already scheduled initial therapy appointment Needs: consideration of medication retrial, development of healthy and effective coping strategies Risk Factors Assessment Male: Yes : No Do You Have Access To A Gun?: No Health Problems: Yes (diagnosed with HIV 2 years ago) Mental Health Diagnoses: Yes (previously treated for depression) Substance Use Disorders: No Previous Attempt: No Family History of Suicide: No Previous Psychiatric Hospitalization: No Hopelessness: Yes Smoker: No Protective Factors Assessment Yarsanism Beliefs: No : No Responsible for Young Children: No Employed: No Stable Relationships: No Supportive Family: Yes (but communication is limited due to distance geographically) Interval History Chief Complaint "[]". Review of Systems Sleep Information Total Hours of Sleep: 6.75 Meal Information Percent Meal Consumed - Breakfast: 100 Percent Meal Consumed - Lunch: 30 Percent Meal Consumed - Dinner: 100 Nutrition Comment: documented from the patient meal record Subjective Subjective Patient was seen & assessed and interval progress reviewed with [treatment team] [nursing and social work] Physical Exam Psychiatric Orientation: alert, oriented x 3 and cooperative Apperance: appropriately dressed, appropriately groomed and appeared stated age Eye Contact: good eye contact and + fair eye contact Motor Behavior: steady gait and station and no abnormal motor movements Speech: normal rate/rhythm/volume of speech Affect: + depressed affect, + anxious affect and mood congruent with affect Mood: + depressed mood Thought Process: goal directed thought process, linear/logical thought process, clear/coherent thought process and thought association intact Thought Content: reality based without delusions and + hopelessness Suicidal Thoughts: denies suicidal thoughts and denies suicidal intent ("I don't think I would ever do it."); + reports suicidal plan (admits to consideration to hang himself in his bathroom, or crash car) Homicidal Thoughts: denies homicidal thoughts Hallucinations: no auditory hallucinations and no visual hallucinations Cognition: recent memory grossly intact, remote memory grossly intact, attention grossly intact and language grossly intact Estimated Intelligence: consistent with education level and + above average estimated intelligence Insight: + fair insight Judgement: + fair judgement Vital Signs (Past 24 Hours) Last Vital Signs Temp 36.7 C 11/12/18 06:50 Pulse 75 11/12/18 06:51 Resp 16 11/12/18 06:50 BP 120/82 11/12/18 06:51 Pulse Ox 98 11/08/18 19:01 Results & Data Current Inpatient Medications Current Inpatient Medications: Current Inpatient Medications Acetaminophen (Tylenol) 650 mg PO Q4H PRN PRN Reason: Headache or Minor Fever Stop: 12/08/18 19:09 Al Hydrox/Mg Hydrox/Simethicone (Maalox) 30 ml PO Q4H PRN PRN Reason: GI Upset Stop: 12/08/18 19:09 Bismuth Subsalicylate (Kaopectate) 15 ml PO PRN PRN PRN Reason: Loose Stool Stop: 12/08/18 19:09 Fluoxetine HCl (Prozac) 40 mg PO QAM PAIGE Stop: 12/12/18 08:59 Last Admin: 11/12/18 07:35 Dose: 40 mg Documented by: Hydroxyzine HCl (Vistaril) 50 mg PO HSZ PRN PRN Reason: Insomnia Stop: 12/08/18 19:09 Hydroxyzine HCl (Vistaril) 25 mg PO Q4H PRN PRN Reason: Anxiety Stop: 12/08/18 19:09 Last Admin: 11/09/18 17:13 Dose: 25 mg Documented by: Magnesium Hydroxide (Milk Of Magnesia) 30 ml PO DAILY PRN PRN Reason: Constipation Stop: 12/08/18 19:09 Sodium Chloride ([place] Nasal) 1 - 2 sprays NA PRN PRN PRN Reason: Nasal Dryness/Congestion Stop: 12/08/18 19:09 Mental Health & Subst Abuse Tx Therapist Name of Therapist: Andrew Lino Rig Welder Name of Rig Welder: Andrez Carrillo Post Discharge Appointments Primary Care Physician Name Of Family Doctor: Dr. Gallego Date of Appointment with PCP: 12/05/18 Specialist Name of Specialist: Dr. Gallego-Director Of Reservations Phone Number for Specialist: [phone] Date of Appointment with Specialist: 12/05/18 Time of Appointment with Specialist: 1:00PM Specialty Appointment Comment: Briseyda Olivia [facility] [id number] CPT Code CPT Code 48932 [id number] (1) Depression Depression Type: unspecified Qualified Code(s): F32.9 - Major depressive disorder, single episode, unspecified (2) HIV (human immunodeficiency virus infection) HIV symptom status: asymptomatic Qualified Code(s): Z21 - Asymptomatic human immunodeficiency virus [HIV] infection status
--- NOTE | 2018-11-12 15:31 | Psychiatric Progress Note ---
Date of Service November 12, 2018 Impression / Recommendations (1) Suicidal ideation: 11/09 - Admits to intermitted suicidality over the past year, with thoughts becoming stronger in the last month. Admits to consideration to hang himself with rope in his bathroom - Admitted to a locked inpatient behavioral health unit, on q15 minute safety checks - Encourage medication initiation/adjustments as indicated - Encourage participation in group and recreational therapies - Gather collateral information from outpatient providers - Suggest family meeting to involve outpatient supports in safety planning - Arrange appropriate aftercare 11/10 -The patient reports that while he has had fleeting thoughts of suicide over the past year he has never had actual suicidal intent. He does acknowledge that he had thought of possibly hanging himself, and notes that he has object in his house that he might use for purposes of hanging, but notes that he has not purchased these items specifically with the idea of hanging himself and says that he does not believe that he is genuinely suicidal. He has no history of intentional self-injurious behaviors and has never had any active suicidal plan or intent. -However, the patient's depression, compounded by his complex social situation, does place him at significant risk for suicide and our plan is to address some of the patient's psychosocial and academic concerns through working with his [facility] academic registrar and the patient. (2) Depression: 11/09 - Will treat as major depressive disorder, recurrent - pt believes he was previously prescribed fluoxetine for his depressive symptoms. He denies side effects and reports mildly noticeable response during the 1.5 month treatment duration - Pt agreeable to resuming fluoxetine after discussion of risks, benefits, and potential side effects. Ordered 20mg to be given qAM, with starting dose this afternoon. 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 -He has thus far tolerated fluoxetine 20 mg daily and noted that at some point during the summer he had a short trial of fluoxetine with possible favorable event had no noted side effects. -The plan is to increase his dose of fluoxetine, beginning tomorrow and we will continue to titrate as indicated. -The patient will need to be connected with an outpatient psychiatrist and a therapist. 11/11 raised prozac to 40mg a day as of 11/12, addressing school and stipend status, and family stressors addressing lack of social supprot and pt wearienss to share and engage with such possible supports 11/12 continue plan unchanged (3) HIV (human immunodeficiency virus infection): 11/09 - Pt's outpatient Infectious Disease provider office contacted on admission - Confirmed current treatment regimen - Recommended restarting regimen at home doses, as patient admits he has not been taking the medication regularly - Pt has follow-up appointment scheduled with Dr. Gallego - Continue work with disease case manager rn and newly scheduled therapist as part of outpatient treatment plan 11/10 -We are concerned that the patient, an intelligent man, stopped taking his HIV medications approximately a month ago. He tells us that he did does not as any part of a plan to cause himself to become sick and but, instead, is a function of his general apathy and lack of motivation. -The patient has been educated concerning the importance of not interrupting HIV treatment, and the associated risks of stopping HIV medications. 11/11 attempting to resume HIV meds however not able to obtain pt own home supply. consulted ID given lack of recent anti-HIV meds and for assistance to obtain appropriate HIV Meds 11/12 anti HIV meds started by Dr. Gallego Risk Factors Assessment Male: Yes : No Do You Have Access To A Gun?: No Health Problems: Yes (diagnosed with HIV 2 years ago) Mental Health Diagnoses: Yes (previously treated for depression) Substance Use Disorders: No Previous Attempt: No Family History of Suicide: No Previous Psychiatric Hospitalization: No Hopelessness: Yes Smoker: No Protective Factors Assessment Buddhism Beliefs: No : No Responsible for Young Children: No Employed: No Stable Relationships: No Supportive Family: Yes (but communication is limited due to distance geographically) Interval History Chief Complaint "tomorrow will be a big day for me, but feeling somewhat better, but now tired. Review of Systems Sleep Information Total Hours of Sleep: 6.75 Meal Information Percent Meal Consumed - Breakfast: 100 Percent Meal Consumed - Lunch: 75 Percent Meal Consumed - Dinner: 100 Nutrition Comment: documented from the patient meal record Subjective Subjective Patient was seen & assessed and interval progress reviewed with nursing and social work pt endorsed some increased anxiety this morning prior to phone meeting with mother and some fleeting passive SI in context of that anxiety that resolved quickly. Pt indicated the actual phone meeting was ok. He does not think that his father is coming to [facility] to visit at this point. He is stating that does need to increase his contact with others and might be willing to try LGBT related options to do so. Pt is thinking tomorrow will be a big day for him as we try to sort out ability to remain active with stipend and health insurance if pulls back from his academic load upon discharge. Pt was active this morning but feels tired at time of assessment. possible tied to stress and activity but could also be s/e of Prozac. pt denied other s/e to Prozac. pt feeling depressive symptoms are improving some Physical Exam Vital Signs (Past 24 Hours) Last Vital Signs Temp 36.7 C 11/12/18 06:50 Pulse 75 11/12/18 06:51 Resp 16 11/12/18 06:50 BP 120/82 11/12/18 06:51 Pulse Ox 98 11/08/18 19:01 Results & Data Current Inpatient Medications Current Inpatient Medications: Current Inpatient Medications Acetaminophen (Tylenol) 650 mg PO Q4H PRN PRN Reason: Headache or Minor Fever Stop: 12/08/18 19:09 Al Hydrox/Mg Hydrox/Simethicone (Maalox) 30 ml PO Q4H PRN PRN Reason: GI Upset Stop: 12/08/18 19:09 Bismuth Subsalicylate (Kaopectate) 15 ml PO PRN PRN PRN Reason: Loose Stool Stop: 12/08/18 19:09 Dolutegravir Sodium (Tivicay) 50 mg PO DAILY PAIGE Stop: 12/13/18 08:59 Emtricitabine/Tenofovir (Truvada 200 Mg-300 Mg) 1 tab PO DAILY PAIGE Stop: 12/13/18 08:59 Fluoxetine HCl (Prozac) 40 mg PO QAM PAIGE Stop: 12/12/18 08:59 Last Admin: 11/12/18 07:35 Dose: 40 mg Documented by: Hydroxyzine HCl (Vistaril) 50 mg PO HSZ PRN PRN Reason: Insomnia Stop: 12/08/18 19:09 Hydroxyzine HCl (Vistaril) 25 mg PO Q4H PRN PRN Reason: Anxiety Stop: 12/08/18 19:09 Last Admin: 11/09/18 17:13 Dose: 25 mg Documented by: Magnesium Hydroxide (Milk Of Magnesia) 30 ml PO DAILY PRN PRN Reason: Constipation Stop: 12/08/18 19:09 Sodium Chloride ([place] Nasal) 1 - 2 sprays NA PRN PRN PRN Reason: Nasal Dryness/Congestion Stop: 12/08/18 19:09 Mental Health & Subst Abuse Tx Therapist Name of Therapist: Andrew Lino Hand Model Name of Hand Model: Andrez Carrillo Post Discharge Appointments Primary Care Physician Name Of Family Doctor: Dr. Gallego Date of Appointment with PCP: 12/05/18 Specialist Name of Specialist: Dr. Gallego-Transmission Specialist Phone Number for Specialist: [phone] Date of Appointment with Specialist: 12/05/18 Time of Appointment with Specialist: 1:00PM Specialty Appointment Comment: [place] [address] CPT Code CPT Code 70172 (1) Depression Depression Type: unspecified Qualified Code(s): F32.9 - Major depressive disorder, single episode, unspecified (2) HIV (human immunodeficiency virus infection) HIV symptom status: asymptomatic Qualified Code(s): Z21 - Asymptomatic human immunodeficiency virus [HIV] infection status
--- NOTE | 2018-11-12 15:35 | Infectious Disease Consult ---
Date of Consultation November 12, 2018 Assessment & Plan (1) HIV (human immunodeficiency virus infection): 22-year-old male with HIV infection, previously well controlled but now noncompliant with medications because of depression. We will restart his medication, and will try to make arrangements with [facility] to help in his getting medications as an outpatient. History of Present Illness Reason for Consultation: HIV positive, has not been taking his medication, not able to get them Attending Physician: Priscilla Marinelli MD History of Present Illness 22-year-old male from [facility], known to me from follow-up for his HIV infection. He was first diagnosed in 2016, has been on a combination of Descovey and Ti vicay, and was last seen in May with an undetectable viral load and a CD4 count of 550. Apparently he has not been taking his medications, has become significantly depressed and suicidal, and is been admitted for further psychiatric management. No obvious HIV related complaints. Allergies Allergy/AdvReac Type Severity Reaction Status Date / Time No Known Allergies Allergy Verified 11/08/18 17:56 Home Medications Home Medications Medication Instructions Recorded Confirmed Type emtricitabine-tenofovir alafen 1 tab PO DAILY 11/08/18 11/08/18 History [Descovy] dolutegravir [Tivicay] 50 mg PO DAILY 11/09/18 11/09/18 History Patient History Medical History Depression HIV (human immunodeficiency virus infection) Family History Other No significant family history Social History Preferred Language: Maldivian Communication Ability: Effective Back End Web Developer Required: No Beliefs That Will Affect Care: None marital status: Single Current Living Situation: Alone current occupational status: student Feels Safe at Home: Yes Smoking Status: Never smoker Hx Alcohol Use: No Hx Substance Use: No Review of Systems Review of Systems: All systems reviewed & are unremarkable except as noted in HPI & below Physical Exam Constitutional: WD/WN, vitals as above comfortable; no acute distress Eyes: PERRL, conjunctivae normal, anicteric sclerae ENMT: external ear and nose normal, oropharynx normal Neck: trachea midline, no thyromegaly neck nontender Respiratory: normal respiratory effort, lungs clear to auscultation normal percussion; does not use accessory muscles Cardiovascular: Rate/Rhythm: regular rate and regular rhythm Heart Sounds: normal S1 and normal S2; no gallop, no murmur and no cardiac rub Vessels: normal peripheral pulses; no JVD Gastrointestinal (Abdomen): normal bowel sounds, soft, nontender, no hepatosplenomegaly Musculoskeletal: no cyanosis or clubbing, extremities motor strength 5/5 Spine: thoracic spine normal to inspection and lumbar spine normal to inspection; no cervical spinal tenderness Skin: no rashes, warm and dry normal turgor; no lesions Neurologic: patellar DTR's 2+ bilat, sensation intact no focal motor deficits Psychiatric: A+Ox3, euthymic affect Orientation: cooperative Lymphatic: no cervical or axillary lymphadenopathy no inguinal lymphadenopathy Results & Data Vital Signs (Past 12 Hours) Vital Signs Temp Pulse Resp BP 11/12/18 06:51 75 120/82 11/12/18 06:50 36.7 C 71 16 124/86 PG Care Time/CCT Total # of Minutes Spent Total Time Spent with Patient: Total time spent is greater than 50% in coordination of care (as documented) at patient's floor/unit and/or counseling patient: (1) HIV (human immunodeficiency virus infection) HIV symptom status: asymptomatic Qualified Code(s): Z21 - Asymptomatic human immunodeficiency virus [HIV] infection status
[2018-11-13] MEDS: DOLUTEGRAVIR SODIUM 50 MG TAB PO SCH (08:49)
[2018-11-13] MEDS: FLUOXETINE HCL 20 MG CAP PO SCH (08:49)
[2018-11-13] MEDS: EMTRICITABINE/TENOFOVIR TAB PO SCH (08:50)
--- NOTE | 2018-11-13 09:30 | Psychiatric Progress Note ---
Date of Service November 13, 2018 Impression / Recommendations (1) Suicidal ideation: 11/09 - Admits to intermittent suicidality over the past year, with thoughts becoming stronger in the last month. Admits to consideration to hang himself with rope in his bathroom - Admitted to a locked inpatient behavioral health unit, on q15 minute safety checks - Encourage medication initiation/adjustments as indicated - Encourage participation in group and recreational therapies - Gather collateral information from outpatient providers - Suggest family meeting to involve outpatient supports in safety planning - Arrange appropriate aftercare 11/10 -The patient reports that while he has had fleeting thoughts of suicide over the past year he has never had actual suicidal intent. He does acknowledge that he had thought of possibly hanging himself, and notes that he has object in his house that he might use for purposes of hanging, but notes that he has not purchased these items specifically with the idea of hanging himself and says that he does not believe that he is genuinely suicidal. He has no history of intentional self-injurious behaviors and has never had any active suicidal plan or intent. -However, the patient's depression, compounded by his complex social situation, does place him at significant risk for suicide and our plan is to address some of the patient's psychosocial and academic concerns through working with his [facility] personal financial advisor and the patient. 11/13 - Reports ongoing thoughts of hopelessness with regard to his school situation; feeling "like life is not worth living" (2) Depression: 11/09 - Will treat as major depressive disorder, recurrent - pt believes he was previously prescribed fluoxetine for his depressive symptoms. He denies side effects and reports mildly noticeable response during the 1.5 month treatment duration - Pt agreeable to resuming fluoxetine after discussion of risks, benefits, and potential side effects. Ordered 20mg to be given qAM, with starting dose this afternoon. 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 -He has thus far tolerated fluoxetine 20 mg daily and noted that at some poin t during the summer he had a short trial of fluoxetine with possible favorable event had no noted side effects. -The plan is to increase his dose of fluoxetine, beginning tomorrow and we will continue to titrate as indicated. -The patient will need to be connected with an outpatient psychiatrist and a therapist. 11/11 raised prozac to 40mg a day as of 11/12, addressing school and stipend status, and family stressors addressing lack of social supprot and pt wearienss to share and engage with such possible supports 11/12 continue plan unchanged 11/13 - Continue above plan, discussed ability to titrate fluoxetine but will plan to continue at 40mg at this time - Continue attempts to address concerns regarding school - ability to take time off/reduce workload and anticipated effect on financial situation (3) HIV (human immunodeficiency virus infection): 11/09 - Pt's outpatient Infectious Disease provider office contacted on admission - Confirmed current treatment regimen - Recommended restarting regimen at home doses, as patient admits he has not been taking the medication regularly - Pt has follow-up appointment scheduled with Dr. Gallego - Continue work with pillowcase sewer and newly scheduled therapist as part of outpatient treatment plan 11/10 -We are concerned that the patient, an intelligent man, stopped taking his HIV medications approximately a month ago. He tells us that he did does not as any part of a plan to cause himself to become sick and but, instead, is a function of his general apathy and lack of motivation. -The patient has been educated concerning the importance of not interrupting HIV treatment, and the associated risks of stopping HIV medications. 11/11 attempting to resume HIV meds however not able to obtain pt own home supply. consulted ID given lack of recent anti-HIV meds and for assistance to obtain appropriate HIV Meds 11/12 anti HIV meds started by Dr. Gallego 11/13 - Continue regimen as above Risk Factors Assessment Male: Yes : No Do You Have Access To A Gun?: No Health Problems: Yes (diagnosed with HIV 2 years ago) Mental Health Diagnoses: Yes (previously treated for depression) Substance Use Disorders: No Previous Attempt: No Family History of Suicide: No Previous Psychiatric Hospitalization: No Hopelessness: Yes Smoker: No Protective Factors Assessment Baptism Beliefs: No : No Responsible for Young Children: No Employed: No Stable Relationships: No Supportive Family: Yes (but communication is limited due to distance geographically) Interval History Identifying Information 22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 Chief Complaint "A little better, still anxious about what is going to be the future." Review of Systems Notes Constitutional: reports mild morning fatigue Cardiovascular: reports "feeling like my heart is beating harder" Respiratory: denied Gastrointestinal: denied Neurological: denied Psychiatric: denies symptoms other than stated above Total of at least 10 systems reviewed, pertinent positives as above and in HPI. Sleep Information Total Hours of Sleep: 7.25 Sleep Comments: pt on q-15 minute checks Meal Information Percent Meal Consumed - Breakfast: 100 Percent Meal Consumed - Lunch: 75 Percent Meal Consumed - Dinner: 100 Nutrition Comment: documented from the patient meal record Subjective Subjective Patient was seen & assessed and interval progress reviewed with treatment team. Staff reports the patient continues to have questions related to his ability to take time off school or reduce workload and maintain financial support/stability. This reportedly continues to be a large stressor for him. Pt had a meeting with his mother via phone/diplomatic interpreter this weekend. Family is supportive, but remains distanced due to geography. Pt was seen today to assess progress since admission. Pt states he is feeling "a little bit better", but admits he is anxious "about what is going to be the future." He states that he is still uncertain of how his stipend would be affected by taking time off s chool, and is hopeful to be able to address these concerns today. Pt admits that school questions remain an ongoing stressor. He denies overt SI, but admits to continued "general thinking like life is not worth living." Pt states his phone meeting with his mother was "fine." He states he parents are supportive and were concerned, and recognizes that he communicates less when he is not doing well with regard to mental health. Pt denies clear side effects from ongoing use of fluoxetine, but has noticed increased morning fatigue and "feeling my heart beat faster, although they say my vitals don't show that." Pt is agreeable to continuing to monitor these observations, but continue the medication unchanged at this time. We reviewed that switching fluoxetine to bedtime, if indeed is contributing to morning fatigue, is an easy transition that can be completed with his outpatient prescriber if this continues to be a concern. Pt denies other needs at this time. Physical Exam Psychiatric Orientation: alert, oriented x 3 and cooperative (timid, but pleasant) Apperance: appropriately dressed and appropriately groomed (long, black hair appearing neat and clean; wearing corrective lenses) Eye Contact: good eye contact Motor Behavior: steady gait and station and no abnormal motor movements Speech: normal rate/rhythm/volume of speech Affect: + anxious affect, + blunted affect (uncomfortable smiling, mildly brighter affect) and mood congruent with affect Mood: + depressed mood (improving somewhat) and + anxious mood ("Anxious about what is the future") Thought Process: goal directed thought process, linear/logical thought process and clear/coherent thought process Thought Content: reality based without delusions and + hopelessness (ongoing, but mildly improved - appearing situational ) Suicidal Thoughts: denies suicidal thoughts (but reports "general thinking that life is not worth living" at times) and denies suicidal intent Hallucinations: no auditory hallucinations and no visual hallucinations Cognition: remote memory grossly intact, attention grossly intact and language grossly intact Estimated Intelligence: consistent with education level Insight: + fair insight Judgement: + fair judgement Vital Signs (Past 24 Hours) Last Vital Signs Temp 36.7 C 11/13/18 06:53 Pulse 84 11/13/18 06:53 Resp 18 11/13/18 06:53 BP 123/80 11/13/18 06:53 Pulse Ox 98 11/08/18 19:01 Results & Data Current Inpatient Medications Current Inpatient Medications: Current Inpatient Medications Acetaminophen (Tylenol) 650 mg PO Q4H PRN PRN Reason: Headache or Minor Fever Stop: 12/08/18 19:09 Al Hydrox/Mg Hydrox/Simethicone (Maalox) 30 ml PO Q4H PRN PRN Reason: GI Upset Stop: 12/08/18 19:09 Bismuth Subsalicylate (Kaopectate) 15 ml PO PRN PRN PRN Reason: Loose Stool Stop: 12/08/18 19:09 Dolutegravir Sodium (Tivicay) 50 mg PO DAILY PAIGE Stop: 12/13/18 08:59 Last Admin: 11/13/18 08:49 Dose: 50 mg Documented by: Emtricitabine/Tenofovir (Truvada 200 Mg-300 Mg) 1 tab PO DAILY PAIGE Stop: 12/13/18 08:59 Last Admin: 11/13/18 08:50 Dose: 1 tab Documented by: Fluoxetine HCl (Prozac) 40 mg PO QAM PAIGE Stop: 12/12/18 08:59 Last Admin: 11/13/18 08:49 Dose: 40 mg Documented by: Hydroxyzine HCl (Vistaril) 50 mg PO HSZ PRN PRN Reason: Insomnia Stop: 12/08/18 19:09 Hydroxyzine HCl (Vistaril) 25 mg PO Q4H PRN PRN Reason: Anxiety Stop: 12/08/18 19:09 Last Admin: 11/09/18 17:13 Dose: 25 mg Documented by: Magnesium Hydroxide (Milk Of Magnesia) 30 ml PO DAILY PRN PRN Reason: Constipation Stop: 12/08/18 19:09 Sodium Chloride ([place] Nasal) 1 - 2 sprays NA PRN PRN PRN Reason: Nasal Dryness/Congestion Stop: 12/08/18 19:09 Mental Health & Subst Abuse Tx Therapist Name of Therapist: Andrew Lino Public Housing Manager Name of Public Housing Manager: Andrez Carrillo Post Discharge Appointments Primary Care Physician Name Of Family Doctor: Dr. Gallego Date of Appointment with PCP: 12/05/18 Specialist Name of Specialist: Dr. Gallego-Replenishment Buyer Phone Number for Specialist: [phone] Date of Appointment with Specialist: 12/05/18 Time of Appointment with Specialist: 1:00PM Specialty Appointment Comment: [address] [place] [address] Other #1: Name of Aftercare Appointment: Student Care and Advocacy - [place] Phone Number of Aftercare Appointment: [phone] Date of Aftercare Appointment: 11/14/18 Time of Aftercare Appointment: 4:00 p.m. Aftercare Appointment Comment: [address] [place] [address] CPT Code CPT Code 34100 (1) Depression Depression Type: unspecified Qualified Code(s): F32.9 - Major depressive disorder, single episode, unspecified (2) HIV (human immunodeficiency virus infection) HIV symptom status: asymptomatic Qualified Code(s): Z21 - Asymptomatic human immunodeficiency virus [HIV] infection status
--- NOTE | 2018-11-13 21:41 | Infectious Disease Progress Nt ---
Date of Service November 13, 2018 Assessment & Plan (1) HIV (human immunodeficiency virus infection): 22-year-old male with HIV infection, previously well controlled but now noncompliant with medications because of depression. We will restart his medication, and will try to make arrangements with [facility] to help in his getting medications as an outpatient. Subjective Patient seen in follow-up for HIV infection. Remains suicidal. No HIV related complaints. Review of Systems Review of Systems: All systems reviewed & are unremarkable except as noted in HPI & below Physical Exam Constitutional: WD/WN, vitals as above comfortable; no acute distress Eyes: PERRL, conjunctivae normal, anicteric sclerae ENMT: external ear and nose normal, oropharynx normal Neck: trachea midline, no thyromegaly neck nontender Respiratory: normal respiratory effort, lungs clear to auscultation normal percussion; does not use accessory muscles Cardiovascular: Rate/Rhythm: regular rate and regular rhythm Heart Sounds: normal S1 and normal S2; no gallop, no murmur and no cardiac rub Vessels: normal peripheral pulses; no JVD Gastrointestinal (Abdomen): normal bowel sounds, soft, nontender, no hepatosplenomegaly Musculoskeletal: no cyanosis or clubbing, extremities motor strength 5/5 Spine: thoracic spine normal to inspection and lumbar spine normal to inspection; no cervical spinal tenderness Skin: no rashes, warm and dry normal turgor; no lesions Neurologic: patellar DTR's 2+ bilat, sensation intact no focal motor deficits Psychiatric: A+Ox3, euthymic affect Orientation: cooperative Lymphatic: no cervical or axillary lymphadenopathy no inguinal lymphadenopathy PG Care Time/CCT Total # of Minutes Spent Total Time Spent with Patient: Total time spent is greater than 50% in coordination of care (as documented) at patient's floor/unit and/or counseling patient: (1) HIV (human immunodeficiency virus infection) HIV symptom status: asymptomatic Qualified Code(s): Z21 - Asymptomatic human immunodeficiency virus [HIV] infection status
[2018-11-14] MEDS: FLUOXETINE HCL 20 MG CAP PO SCH (07:45)
[2018-11-14] MEDS: EMTRICITABINE/TENOFOVIR TAB PO SCH (07:46)
[2018-11-14] MEDS: DOLUTEGRAVIR SODIUM 50 MG TAB PO SCH (07:46)
--- NOTE | 2018-11-14 09:14 | Discharge Summary ---
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 Pt was admitted voluntarily for inpatient psychiatric treatment due to reports of worsening depression and suicidal ideation with plan to hang himself in his bathroom with a rope. It is reported that the patient was brought to the ED by police after his parent's raised concern for his well-being. Pt is cooperative with psychiatric evaluation and states that he has noticed depression for over 1 year. He admits his symptoms started as "mild, less intense", but were exacerbated by feeling as though he was not meeting the expectations of his professors and himself. Pt admits that "last semester was very bad." He states he went home to [facility] for the summer and was started on antidepressant medications. He admits the medications began to have some mild effect before he returned to school in the Fall. He states he was physically ill when he returned to the university and stopped taking the medications. Pt admits to a diagnosis of HIV, which was made 2 years ago - admitting that he has also not been motivated to take his HIV medication regimen appropriately as well. Pt states that "the year I was diagnosed wasn't bad, I used school work as a distraction." He admits that as his depression has worsened, he has spent more time focused on the disease. Pt states that he was able to reach out to a therapist through [facility] prior to this admission, and has an evaluation scheduled. He does have a director case though this center, whom he identifies as a support. Otherwise, patient does not have outpatient providers and admits that he does not have extensive support in the area. Pt reports low mood for the past year, along with isolative behavior, poor appetite, variable sleep patterns, limited motivation, difficulty keeping up with self-care, difficulty concentrating, and periods of hopelessness. Pt admits that suicidal ideation has been intermittent for the past year, but has worsened in severity since returning to school. He states that he does not feel he would go through with hurting himself, but admits to considering using ropes to hang himself on his shower curtain sanchez. He also states he has had the thought to crash his car while driving, but does not believe he would do this. Pt admits to "stress" related to his Ph.D program, but denies cope symptoms of anxiety - stating "I just don't do things, I avoid it." Pt denies HI, SIB, A/V hallucinations, paranoia, elie/hypomania, other symptoms more suggestive of a bipolar presentation, OCD, PTSD, eating disorder, and other specific psychiatric symptoms. Physical Exam Psychiatric Orientation: alert, oriented x 3 and cooperative (timid, but pleasant) Apperance: appropriately dressed, appropriately groomed and appeared stated age Eye Contact: good eye contact Motor Behavior: steady gait and station and no abnormal motor movements Speech: normal rate/rhythm/volume of speech Affect: + anxious affect, + blunted affect and mood congruent with affect Mood: + depressed mood (but admits to improvement over his admission) and + anxious mood ("A lot better, but still a little anxious about the school topic") Thought Process: goal directed thought process, linear/logical thought process, clear/coherent thought process and thought association intact Thought Content: reality based without delusions; no hopelessness and no worthlessness Suicidal Thoughts: denies suicidal thoughts and denies suicidal intent Homicidal Thoughts: denies homicidal thoughts Hallucinations: no auditory hallucinations and no visual hallucinations Cognition: remote memory grossly intact, attention grossly intact and language grossly intact Estimated Intelligence: consistent with education level Insight: good insight Judgement: good judgement Vital Signs (Past 24 Hours) Last Vital Signs Temp 36.7 C 11/14/18 06:51 Pulse 91 H 11/14/18 06:52 Resp 18 11/14/18 06:51 BP 120/78 11/14/18 06:52 Pulse Ox 98 11/08/18 19:01 Principal Diagnosis - Major depressive disorder - Human Immunodeficiency Virus (HIV) infection Psychiatric Data 22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 Pt stated he had been behind on deadlines for his Ph.D program and had also been struggling to keep up with recommended treatment for HIV, which he was diagnosed with 2-years ago. Pt stated that he had been treated with antidepressant medication in [facility] the summer, believed to be fluoxetine. Due to reportedly positive (though brief) trial of fluoxetine, it was recommended the medication be resumed. After discussion of risks, benefits, and possible side effects, patient resumed fluoxetine, which was titrated to a dose of 40mg qAM. Pt participated actively in group and recreational programming during his admission. He involved his mother in a family meeting via phone to discuss stressors and limited support in the area. LGBT support groups on campus were also reviewed with the patient, in order to increase his support [place]. Contact with his director case through [facility] was attempted. Appointments for therapy and psychiatry were scheduled to allow for timely follow-up after discharge. Contact was also made with the [employer] to encourage discussion of patient's education options after discharge. Pt will meet with Student Care and Advocacy after discharge to allow him to discuss a school schedule that would allow him to focus on his mental health treatment, with consideration to take a semester off. Consult for infectious disease was also obtained, and patient's outpatient provider for his HIV treatment was able to resume his medication regimen. Based on review of patient's case and their current presentation, risk of harm to self or others is no longer perceived to be acute. Management of symptoms on an outpatient basis seems the most appropriate and least restrictive setting. Pt seems appropriate for discharge with recommendation for consistent follow-up with outpatient psychiatric prescriber, therapist and director case. Pt verbalized understanding of discharge plan reviewed and is agreeable with plan to be discharged home today. Day of Discharge Assessment Patient case was reviewed and discussed with nursing and social work. Staff report the patient is reporting improvement in his mood. Initial contact was made with [employer] to discuss patient's options to take time to focus on his mental health. It was reported that patient may have the option to take time off from school, but still maintain his stipend. Pt is wishing to focus on his mental health treatment more heavily after discharge. Pt reported his mood was an 8/10 last evening and reported feeling "a lot better." Pt was seen today to assess readiness for discharge. Pt shares with this provider that his is feeling "better." He mentions previous reports of "feeling my heart beat" have been reduced, only episode occurring last evening before bed. Pt states that he has benefited from groups, reporting desire to continue journaling after discharge as he found this helpful. We reviewed initial reports from [employer] regarding his ability to focus on his treatment and maintain his stipend for school. He states that at this time, he is considering taking time from school to "better focus on my treatment for a while." Pt denies SI since earlier in his admission, reporting "I feel like my situation is a lot more optimistic now, I'm more hopeful. I have motivation." We reviewed scheduled aftercare appointments and follow-up scheduled with Nicholas to continue fluoxetine. Pt states that he is motivated to attend these appointments. Eventual goal remains to return to his Ph.D program, but with improved mental health. Pt is requesting discharge today, in order to attend a meeting with contacts from the university. He is able to verbalize his safety plan to this provider. Pt is future oriented during conversation. He denies any hesitations about discharge today, and admits to only mild anticipatory anxiety. Pt denies other needs or concerns at this time. Discharge plan was reviewed with the patient, who verbalized understanding and is agreeable with the plan to return home today via taxi. All questions related to discharge were answered. ROS: Constitutional: denied Cardiovascular: denied Respiratory: denied Gastrointestinal: denied Neurological: denied Psychiatric: denies symptoms other than stated above Total of at least 10 systems reviewed, pertinent positives as above and in HPI. Transition of Care Transition Of Care Record: was reviewed with the patient Advance Directives Advance Directives Information Provided: Yes Advance Directives: No Mental Health Advance Directive: No Advance Directives on File: No Living Will: No Power of Customer Service Teller: No Advance Directives Reason:: Declines as Mental Health Visit. Risk Factors Assessment Presenting risk factors reviewed on discharge. Precipitating stressors mitigated by: admission for inpatient psychiatric observation and treatment, initiation of medications to target presenting symptoms, attendance of therapeutic treatment groups, development of healthy and effective coping strategies, involvement of outpatient supports, completion of a safety plan, treatment of medical conditions, and education on diagnoses. Pt has demonstrated improvement in condition with regard to re-trial of antidepressant medication, involvement of mother in a phone meeting, contact with student services at [facility], and resuming outpatient HIV treatment regimen. At this time, patient is requesting discharge and is no longer considered to be at acute risk of harm to himself or others. Pt will be discharged with recommendation for ongoing outpatient psychiatric treatment. Male: Yes : No Do You Have Access To A Gun?: No Health Problems: Yes (diagnosed with HIV 2 years ago) Mental Health Diagnoses: Yes (previously treated for depression) Substance Use Disorders: No Previous Attempt: No Family History of Suicide: No Previous Psychiatric Hospitalization: No Hopelessness: Yes Smoker: No Protective Factors Assessment Restoration Beliefs: No : No Responsible for Young Children: No Employed: No Stable Relationships: No Supportive Family: Yes (but communication is limited due to distance geographically) Tobacco Cessation at Discharge Tobacco Cessation Medication Prescribed at Discharge: Not Applicable/Non-Smoker Total Time Total Time Spent: Greater Than 30 Minutes Total Time Includes: Examination of the patient, Discharge Planning, Medication Reconciliation and Communication with other providers Discharge Data Consultations 11/11/18 13:47 Consult Infectious Diseases Routine Lab Results 11/08/18 11/08/18 11/08/18 16:00 16:00 16:51 WBC 7.07 RBC 4.75 Hgb 14.3 Hct 41.1 L MCV 86.5 MCH 30.1 MCHC 34.8 RDW Std Deviation 40.9 RDW Coeff of Ruth 12.8 Plt Count 331 MPV 9.4 Immature Gran % (Auto) 0.1 Neut % (Auto) 72.2 Lymph % (Auto) 19.4 [place] % (Auto) 5.0 Eos % (Auto) 2.7 Baso % (Auto) 0.6 Immature Gran # (Auto) 0.01 Neut # (Auto) 5.11 Lymph # (Auto) 1.37 [place] # (Auto) 0.35 Eos # (Auto) 0.19 Baso # (Auto) 0.04 Sodium Potassium Chloride Carbon Dioxide Anion Gap BUN Creatinine Est Cr Clr Drug Dosing Est GFR ( Amer) Est GFR (Non-Af Amer) BUN/Creatinine Ratio Glucose Calcium Total Bilirubin AST ALT Alkaline Phosphatase Total Protein Albumin Globulin Albumin/Globulin Ratio TSH Urine Color [place] Urine Appearance Clear Urine pH 8.5 H Ur Specific [place] 1.016 Urine Protein Negative Urine Glucose (UA) Negative Urine Ketones Negative Urine Blood Negative Urine Nitrite Negative Urine Bilirubin Negative Urine Urobilinogen Negative Ur Leukocyte Esterase Negative Salicylates Urine Opiates Screen Neg Ur Methadone, Qual Neg Acetaminophen Urine Barbiturates Neg Ur Phencyclidine (PCP) Neg U Amphetamin/Meth Scrn Neg MDMA (Ecstasy) Screen Neg U Benzodiazepines Scrn Neg Ur Cocaine Metabolite Neg U Marijuana (THC) Screen Neg Ethyl Alcohol mg/dL 11/08/18 11/08/18 11/08/18 16:51 16:51 16:51 WBC RBC Hgb Hct MCV MCH MCHC RDW Std Deviation RDW Coeff of Ruth Plt Count MPV Immature Gran % (Auto) Neut % (Auto) Lymph % (Auto) [place] % (Auto) Eos % (Auto) Baso % (Auto) Immature Gran # (Auto) Neut # (Auto) Lymph # (Auto) [place] # (Auto) Eos # (Auto) Baso # (Auto) Sodium 140 Potassium 3.7 Chloride 106 Carbon Dioxide 26 Anion Gap 7.0 BUN 10 Creatinine 0.90 Est Cr Clr Drug Dosing 106.0 Est GFR ( Amer) 138.1 Est GFR (Non-Af Amer) 119.1 BUN/Creatinine Ratio 11.0 Glucose 92 Calcium 9.1 Total Bilirubin 0.7 AST 14 L ALT 28 Alkaline Phosphatase 65 Total Protein 7.9 Albumin 4.2 Globulin 3.7 Albumin/Globulin Ratio 1.1 TSH 0.997 Urine Color Urine Appearance Urine pH Ur Specific [place] Urine Protein Urine Glucose (UA) Urine Ketones Urine Blood Urine Nitrite Urine Bilirubin Urine Urobilinogen Ur Leukocyte Esterase Salicylates < 1.7 L Urine Opiates Screen Ur Methadone, Qual Acetaminophen < 2 L Urine Barbiturates Ur Phencyclidine (PCP) U Amphetamin/Meth Scrn MDMA (Ecstasy) Screen U Benzodiazepines Scrn Ur Cocaine Metabolite U Marijuana (THC) Screen Ethyl Alcohol mg/dL < 3.0 Hospital Course (1) Suicidal ideation: 11/09 - Admits to intermittent suicidality over the past year, with thoughts becoming stronger in the last month. Admits to consideration to hang himself with rope in his bathroom - Admitted to a locked inpatient behavioral health unit, on q15 minute safety checks - Encourage medication initiation/adjustments as indicated - Encourage participation in group and recreational therapies - Gather collateral information from outpatient providers - Suggest family meeting to involve outpatient supports in safety planning - Arrange appropriate aftercare 11/10 -The patient reports that while he has had fleeting thoughts of suicide over the past year he has never had actual suicidal intent. He does acknowledge that he had thought of possibly hanging himself, and notes that he has object in his house that he might use for purposes of hanging, but notes that he has not purchased these items specifically with the idea of hanging himself and says that he does not believe that he is genuinely suicidal. He has no history of intentional self-injurious behaviors and has never had any active suicidal plan or intent. -However, the patient's depression, compounded by his complex social situation, does place him at significant risk for suicide and our plan is to address some of the patient's psychosocial and academic concerns through working with his [facility] community relations advisor and the patient. 11/13 - Reports ongoing thoughts of hopelessness with regard to his school situation; feeling "like life is not worth living" (2) Depression: 11/09 - Will treat as major depressive disorder, recurrent - pt believes he was previously prescribed fluoxetine for his depressive symptoms. He denies side effects and reports mildly noticeable response during the 1.5 month treatment duration - Pt agreeable to resuming fluoxetine after discussion of risks, benefits, and potential side effects. Ordered 20mg to be given qAM, with starting dose this afternoon. 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 -He has thus far tolerated fluoxetine 20 mg daily and noted that at some point during the summer he had a short trial of fluoxetine with possible favorable event had no noted side effects. -The plan is to increase his dose of fluoxetine, beginning tomorrow and we will continue to titrate as indicated. -The patient will need to be connected with an outpatient psychiatrist and a therapist. 11/11 raised prozac to 40mg a day as of 11/12, addressing school and stipend status, and family stressors addressing lack of social supprot and pt wearienss to share and engage with such possible supports 11/12 continue plan unchanged 11/13 - Continue above plan, discussed ability to titrate fluoxetine but will plan to continue at 40mg at this time - Continue attempts to address concerns regarding school - ability to take time off/reduce workload and anticipated effect on financial situation (3) HIV (human immunodeficiency virus infection): 11/09 - Pt's outpatient Infectious Disease provider office contacted on admission - Confirmed current treatment regimen - Recommended restarting regimen at home doses, as patient admits he has not been taking the medication regularly - Pt has follow-up appointment scheduled with Dr. Gallego - Continue work with director case and newly scheduled therapist as part of outpatient treatment plan 11/10 -We are concerned that the patient, an intelligent man, stopped taking his HIV medications approximately a month ago. He tells us that he did does not as any part of a plan to cause himself to become sick and but, instead, is a function of his general apathy and lack of motivation. -The patient has been educated concerning the importance of not interrupting HIV treatment, and the associated risks of stopping HIV medications. 11/11 attempting to resume HIV meds however not able to obtain pt own home supply. consulted ID given lack of recent anti-HIV meds and for assistance to obtain appropriate HIV Meds 11/12 anti HIV meds started by Dr. Gallego 11/13 - Continue regimen as above Mental Health & Subst Abuse Tx Psychiatrist Name of Psychiatrist: Nicholas Chadwick Psychiatrist's Date of Appointment with Psychiatrist: 11/28/18 Time of Appointment with Psychiatrist: 10:00 a.m. Psychiatric Appointment Comment: [address] [facility] Therapist Name of Therapist: Andrew Lino LCSW Therapist's Date of Therapist Appointment: 11/17/18 Time of Therapist Appointment: 12:30 p.m. Therapy Appointment Comment: [address] [place] [address] Analysis Mgr Name of Analysis Mgr: Andrez Evangelista Phone Number for Analysis Mgr: [phone] Time of Appointment with Analysis Mgr: Please follow up as needed Case Management Appointment Comment: [place] [address] Post Discharge Appointments Primary Care Physician Name Of Family Doctor: [facility] Primary Care Date of Appointment with PCP: 12/05/18 Time of Appointment with PCP: Follow up as needed [facility] [address] Specialist Name of Specialist: Dr. Gallego-Wireless Operator Phone Number for Specialist: [phone] Date of Appointment with Specialist: 12/05/18 Time of Appointment with Specialist: 1:00PM Specialty Appointment Comment: [address] [place] [address] Smoking Cessation Counseling Tobacco Cessation Medication Prescribed at Discharge: Not Applicable/Non-Smoker Other #1: Name of Aftercare Appointment: [facility] - [place] Phone Number of Aftercare Appointment: [phone] Date of Aftercare Appointment: 11/14/18 Time of Aftercare Appointment: 4:00 p.m. Aftercare Appointment Comment: [address] [facility] Contact Information Discharge Discharge Address: [address] [place] [address] Discharge Plan Discharge Items Patient Disposition: Home - Self-Care Reason For Visit: MDD Discharge Diagnosis: Major Depressive Disorder Activity: Resume your previous activity Non-emergency contact: Primary Care Provider, Specialist, Psychiatrist and Therapist Call non-emergency contact if: you have any medication questions and your symptoms worsen Follow-up/Referrals: Kenneth Gallego MD [Primary Care Provider] - Diet: Regular Addtl Attending Provider Instructions: SPECIAL CARE INSTRUCTIONS: 1. Follow through with your scheduled aftercare appointments. If unable to keep an appointment, please call to reschedule. 2. Take your medication only as prescribed. Medication should not be changed or stopped without the approval of your doctor. In the event of worsening symptoms or concerns about side effects, contact your doctor immediately. 3. Utilize new healthy coping skills, anger management skills, and stress management skills learned during your hospitalization. Journal feelings and process them with a support person. Identify stressors or situations that may result in relapse, deterioration or inappropriate behaviors and develop a plan to deal with those issues. 4. If your coping skills are ineffective and you are in crisis, contact your outpatient providers for direction. If unable to reach your providers, please call the CAN HELP LINE AT or go to the closest Emergency Room. 5. Avoid alcohol and un-prescribed drugs. 6. You have been provided with the Mental Health Advance Directives Pamphlet for your review. AFTERCARE APPOINTMENTS: * Please call your insurance company prior to your scheduled appointment to confirm your aftercare providers are covered. Take your insurance information to your appointments. WHO TO CALL AND WHEN: Medical Emergencies: For questions or emergencies related to your hospital stay, please contact the Inpatient Behavioral Health Unit at [phone]. A hospice liaison is on-call 13/09 for the Behavioral Health Unit for emergencies At any time you feel your situation is an emergency, you may also call [phone] immediately. Your Doctors Instructions noted above were prepared by provider Jessica Yañez PA-C. Pending Studies at Discharge: No Stand-Alone Forms: My [facility] Medications and DC Order Prescriptions: New fluoxetine 40 mg capsule 40 mg PO QAM 30 Days Qty: 30 RF: 0 Continued Descovy 200-25 mg Tablet 1 tab PO DAILY RF: 0 Tivicay 50 mg tablet 50 mg PO DAILY RF: 0 Discharge Orders: Discharge Order (Routine); Ordered 11/14/18 Ordered By: Jessica Yañez Admission Data Admit Date/Time: 11/08/18 19:11 Attending Provider: Priscilla Marinelli Admit Provider: Yola Ryan Primary Care Provider: Kenneth Gallego Other Providers: Kenneth Gallego Other Interventions: Discharge Summary Assessment (RN) Last Done: 11/14/18 09:56 PSY Interdisciplinary Discharge Planning Last Done: 11/14/18 10:07 DC Date/Time DO NOT enter until pt leaves facility: 11/14/18 10:25
[2018-11-14 09:58] VITALS: BP 101/65; PULSE 77
== END 2018-11-14 10:25 | disposition home or self-care (01) | DRG 885 ==
LOC: ED 15:46 → 3S 19:11
DX: R45.851 Suicidal ideations; Z91.14 Patient's other noncompliance with medication regimen; Z79.899 Other long term (current) drug therapy; B20 Human immunodeficiency virus [HIV] disease; F33.9 Major depressive disorder, recurrent, unspecified